=== PATIENT | female | born 1965 | race African-American/Black ===

== ENCOUNTER 2016-12-25 21:02 | Emergency (ER) | payer OTHER ==
[~2016-12-25] VITALS: Ht 162.6 cm; Wt 110.0 kg
[2016-12-25] MEDS ORDERED: TRAMADOL 50MG TABLET PO ONE (22:00)
[2016-12-25 23:16] VITALS: BP 150/80
== END 2016-12-25 23:19 | disposition home or self-care (01) ==
LOC: ER 22:22
DX: K08.89 Other specified disorders of teeth and supporting structures (principal); Z87.891 Personal history of nicotine dependence; Z98.51 Tubal ligation status
CPT/HCPCS: 99283

== ENCOUNTER 2016-12-29 09:36 | Emergency (ER) | payer OTHER ==
[~2016-12-29] VITALS: Ht 162.6 cm; Wt 109.0 kg
[2016-12-29] MEDS ORDERED: IPRATROPIUM BROMIDE (0.02%) 0.5MG/2.5ML NEB HHN STA (11:02)
[2016-12-29] MEDS ORDERED: ALBUTEROL (0.083%) 2.5MG/3ML NEB HHN STA (11:02)
[2016-12-29] MEDS ORDERED: METHYLPREDNISOLONE SOD SUCC 125 MG/2 ML VIAL IV STA (11:02)
[2016-12-29] MEDS ORDERED: KETOROLAC 30MG/ML VIAL IV ONE (11:15)
[2016-12-29 11:44] LABS: BASOPHILS % 1.1 % (0.0-2.0); EOSINOPHILS % 8.2 % (0.0-5.0); HEMATOCRIT. 35.3 % (36.0-48.0); HEMOGLOBIN. 11.1 g/dL (12.0-16.0); LYMPHOCYTES % 23.2 % (20.0-50.0); MEAN CORPUSCULAR HEMOGLOBIN 22.1 pg (28.0-32.0); MEAN CORPUSCULAR VOLUME 70.4 fL (81.0-99.0); MEAN PLATELET VOLUME 8.5 fl (7.4-10.4); MONOCYTES % 3.1 % (2.0-8.0); NEUTROPHILS % 64.4 % (40.0-76.0); PLATELET 343 x1000/uL (130-400); RED BLOOD CELL COUNT 5.01 mill/uL (4.2-5.4); RED CELL DISTRIBUTION WIDTH 18.2 % (11.6-14.6)
[2016-12-29 11:57] LABS: CARBON DIOXIDE 26 mEq/L (21-32); CHLORIDE 106 mEq/L (98-107); TROPONIN I < 0.02 ng/mL (0.00-0.04)
[2016-12-29] MEDS ORDERED: LEVOFLOXACIN 250MG TABLET PO NR (12:30)
[2016-12-29 14:20] VITALS: BP 130/58
== END 2016-12-29 15:40 | disposition home or self-care (01) ==
LOC: ER 10:52
DX: J45.909 Unspecified asthma, uncomplicated (principal); R05 Cough; Z98.51 Tubal ligation status
CPT/HCPCS: 36415; 71010; 80053; 83605; 83690; 83880; 84484; 85025; 87040; 93005; 94640; 96374; 96375; 99285; J1885; J2930; J7611